=== PATIENT | female | born 1975 | race African-American/Black ===

== ENCOUNTER 2022-11-27 08:57 | Emergency (ER) | payer SELFPAY ==
[~2022-11-27] VITALS: Wt 113.4 kg
[2022-11-27 10:49] LABS: HEMATOCRIT 44.2 % (37.0-47.0); MEAN CELL VOLUME 91.1 fl (81.0-99.0); MEAN CORPUSCULAR HGB 29.1 pg (27.0-31.0); MEAN CORPUSCULAR HGB CONC 31.9 g/dl (33.0-37.0); MEAN PLATELET VOLUME 10.1 fl (9.6-12.3); PLATELET COUNT AUTOMATED 238 10*3/uL (130-400); RED BLOOD COUNT 4.85 10*6/uL (4.10-5.10); RED CELL DISTRI WIDTH 13.2 % (0-14.5); WHITE BLOOD COUNT 17.3 10*3/uL (4.8-10.8)
[2022-11-27 10:50] LABS: MANUAL DIFF REFLEX YES
[2022-11-27 11:12] LABS: ALKALINE PHOSPHATASE 119 U/L (46-116); BUN 12 mg/dl (9-23); CHLORIDE 108 mmol/L (98-107); LIPASE 41 U/L (12-53); PLATELET SUFFICIENCY NORMAL (NORMAL); POTASSIUM 3.6 mmol/L (3.4-5.1); SGPT/ALT 21 U/L (10-49); TOTAL CELLS COUNTED 100 #CELLS; TOTAL PROTEIN 6.6 gm/dL (6.0-8.0)
[2022-11-27 11:26] LABS: BETA-HCG, QUANT < 3.0 mIU/mL (3-10)
[2022-11-27 11:48] LABS: BILIRUBIN Negative (Negative); BLOOD Negative (Negative); CLARITY Clear (Clear); COLOR Dark Yellow (Yellow); GLUCOSE Negative (Negative); KETONE Trace (Negative); LEUKO ESTERASE Trace (Negative); NITRITE Negative (Negative); PH 5.5 (4.5-8.0); SPECIFIC GRAVITY >= 1.030 (1.001-1.030)
[2022-11-27 12:03] LABS: BACTERIA 1+; MUCOUS 2+; RBC 0-2 rbc/hpf (0-2)
[2022-11-27] MEDS ORDERED: PREDNISONE50 MG PO (16:30)
[2022-11-27] MEDS ORDERED: ONDANSETRON4 MG SL (16:30)
== END 2022-11-27 16:38 | disposition home or self-care (01) ==
LOC: ED 08:57
PROVIDERS: Emergency Medicine
DX: R11.2 Nausea with vomiting, unspecified (principal); L25.9 Unspecified contact dermatitis, unspecified cause; Z91.030 Bee allergy status; Z88.5 Allergy status to narcotic agent; Z79.899 Other long term (current) drug therapy

== ENCOUNTER 2024-06-16 18:18 | Observation (INO) | payer SELFPAY ==
[2024-06-16] VITALS (7 sets, daily range): BP systolic 155–201; BP diastolic 79–117
[~2024-06-16] VITALS: Ht 170.1 cm; Wt 113.4 kg
[~2024-06-16 18:18] MED LIST: ONDANSETRON4 MG SL; PREDNISONE50 MG PO
[2024-06-16 19:59] LABS: BASO # 0.1 10*3/uL (0.0-0.1); BASO % 0.7 % (0.0-1.0); EOS # 0.1 10*3/uL (0.0-0.4); EOS % 1.1 % (1.0-4.0); HEMATOCRIT 44.7 % (37.0-47.0); MEAN CORPUSCULAR HGB 27.9 pg (27.0-31.0); MEAN CORPUSCULAR HGB CONC 31.3 g/dl (33.0-37.0); MEAN PLATELET VOLUME 9.9 fl (9.6-12.3); MONO % 10.3 % (3.0-9.0); NEUT # 6.6 10*3/uL (2.3-7.9); NEUT % 69.3 % (47.0-73.0); PLATELET COUNT AUTOMATED 248 10*3/uL (130-400); RED BLOOD COUNT 5.02 10*6/uL (4.10-5.10); RED CELL DISTRI WIDTH 13.3 % (0-14.5); WHITE BLOOD COUNT 9.5 10*3/uL (4.8-10.8)
[2024-06-16 20:17] LABS: ALKALINE PHOSPHATASE 126 U/L (46-116); BUN 21 mg/dl (9-23); CHLORIDE 106 mmol/L (98-107); POTASSIUM 3.9 mmol/L (3.4-5.1); SGPT/ALT 33 U/L (5-49); TOTAL PROTEIN 7.5 gm/dL (6.0-8.0)
[2024-06-17 00:17] VITALS: BP 148/74
[2024-06-17 02:50] VITALS: BP 146/85
[2024-06-17 03:04] VITALS: BP 146/85
[2024-06-17] MEDS ORDERED: BISACODYL 10 MG SUPP R PRN (03:05)
[2024-06-17] MEDS ORDERED: ACETAMINOPHEN 325 MG TAB PO PRN (03:05)
[2024-06-17] MEDS ORDERED: ACETAMINOPHEN 650 MG SUPP R PRN (03:05)
[2024-06-17] MEDS ORDERED: BISACODYL 5 MG TAB PO PRN (03:05)
[2024-06-17] MEDS ORDERED: Ondansetron Hydrochloride 4 MG/2 ML VIAL IV PRN (03:05)
[2024-06-17] MEDS ORDERED: Magnesium Hydroxide 30 ML UDC PO PRN (03:05)
[2024-06-17 05:00] VITALS: BP 143/98
[2024-06-17 06:22] VITALS: BP 146/83
[2024-06-17 06:25] LABS: BASO # 0.1 10*3/uL (0.0-0.1); BASO % 0.7 % (0.0-1.0); EOS # 0.1 10*3/uL (0.0-0.4); EOS % 1.3 % (1.0-4.0); HEMATOCRIT 42.4 % (37.0-47.0); MEAN CELL VOLUME 89.3 fl (81.0-99.0); MEAN CORPUSCULAR HGB 28.6 pg (27.0-31.0); MEAN CORPUSCULAR HGB CONC 32.1 g/dl (33.0-37.0); MEAN PLATELET VOLUME 10.5 fl (9.6-12.3); MONO # 0.5 10*3/uL (0.1-1.0); MONO % 6.2 % (3.0-9.0); NEUT # 5.9 10*3/uL (2.3-7.9); NEUT % 77.2 % (47.0-73.0); PLATELET COUNT AUTOMATED 237 10*3/uL (130-400); RED BLOOD COUNT 4.75 10*6/uL (4.10-5.10); RED CELL DISTRI WIDTH 13.2 % (0-14.5); WHITE BLOOD COUNT 7.6 10*3/uL (4.8-10.8)
[2024-06-17 06:54] LABS: VITAMIN D, 25-HYDROXY 16.2 ng/mL (30-100)
[2024-06-17 06:56] LABS: ALKALINE PHOSPHATASE 116 U/L (46-116); BUN 21 mg/dl (9-23); CHLORIDE 106 mmol/L (98-107); CHOLESTEROL 174 mg/dL (<200); FREE T4 1.21 ng/dl (0.89-1.76); LDL CHOLESTEROL 115 mg/dL (9-159); POTASSIUM 3.4 mmol/L (3.4-5.1); SGPT/ALT 28 U/L (5-49); TOTAL PROTEIN 6.9 gm/dL (6.0-8.0); TRIGLYCERIDES 94 mg/dl (<150)
[2024-06-17 07:53] VITALS: BP 145/92
[2024-06-17] MEDS ORDERED: Enoxaparin Sodium 40 MG/0.4 ML SYR SC SCH (10:00)
[2024-06-17] MEDS ORDERED: LISINOPRIL 5 MG TAB PO SCH (10:00)
[2024-06-17] MEDS ORDERED: VISTARIL25 MG PO (11:16)
[2024-06-17] MEDS ORDERED: LISINOPRIL5 MG PO (11:16)
== END 2024-06-17 11:44 | disposition home or self-care (01) ==
LOC: ED 18:18 → EDHOLD 06-17 02:36 → 4E 06-17 09:10 → EDHOLD 06-17 09:10 → 4E 06-17 09:10 → EDHOLD 06-17 11:44
PROVIDERS: Emergency Medicine; Student in an Organized Health Care Education/Training Program; ADMIT Internal Medicine; ATTEND Internal Medicine
DX: R07.89 Other chest pain (principal); E66.812 Obesity, class 2; I10 Essential (primary) hypertension; E55.9 Vitamin D deficiency, unspecified; F41.9 Anxiety disorder, unspecified; R73.9 Hyperglycemia, unspecified; R74.8 Abnormal levels of other serum enzymes; Z68.39 Body mass index [BMI] 39.0-39.9, adult; I16.0 Hypertensive urgency; Z79.899 Other long term (current) drug therapy